=== PATIENT | female | born 1995 | race Caucasian/White ===

== ENCOUNTER 2018-10-10 08:06 | Emergency (ER) | payer OTHER ==
[2018-10-10] MEDS ORDERED: RINGERS SOLUTION,LACTATED 1,000 ML IV ONE (08:24)
--- NOTE | 2018-10-10 08:28 | ER Document Report ---
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 Patient states that she was standing at the computer reviewing the patient's chart when she became flushed, lightheaded and the next thing she knew had a change in vision and was on the floor. Patient denies loss of consciousness. She states that she could hear everything that was going on around her. Denies prior similar symptoms, preceding chest pain, nausea, shortness of breath. Patient's last menstrual period was last week. I asked if she was nervous about starting her first day or had she not eaten breakfast this morning and she states that she did not feel nervous and that she had eaten prior to arrival. She denies any recent illness, current medication use, tobacco use, alcohol use. Upon my exam patient has no physical complaints. Patient denies any cardiac history, history of arrhythmias, history of early cardiac in family. - HPI Onset: Just prior to arrival Onset/Duration: Sudden Quality of pain: No pain Associated symptoms: denies: Body/muscle aches, Chest pain, Nonproductive cough, Productive cough, Fever, Headache, Leg swelling, Nausea, Vomiting, Shortness of breath, Slow to respond, Weakness Exacerbated by: Denies Relieved by: Denies Similar symptoms previously: No Recently seen / treated by doctor: No - Related Data Allergies/Adverse Reactions: No Known Allergies Allergy (Verified 10/10/18 08:32) Past Medical History - General Information source: Patient, [facility] Records - Social History Smoking Status: Never Smoker Frequency of alcohol use: None Drug Abuse: None Lives with: Family Family History: Reviewed & Not Pertinent - Medical History Medical History: Other - Anemia Review of Systems - Review of Systems Notes: REVIEW OF SYSTEMS: CONSTITUTIONAL : Denies fever, chills, or sweats. Denies recent illness. De nies weight loss, recent hospitalizations. EENT: Denies visual changes, eye pain. Denies sore throat, oral lesions, difficulty swallowing. CARDIOVASCULAR: Denies chest pain. Denies palpitations. Denies lower extremity edema. RESPIRATORY: Denies cough. Denies shortness of breath, wheezing. GASTROINTESTINAL: Denies abdominal pain or distention. Denies nausea, vomiting, or diarrhea. Denies blood in vomitus, stools, or per rectum. Denies black, tarry stools. Denies constipation. GENITOURINARY: Denies difficulty urinating, painful urination, frequency, blood in urine, or vaginal discharge. MUSCULOSKELETAL: Denies back or neck pain or stiffness. Denies joint pain or swelling. SKIN: Denies rash, lesions or sores. HEMATOLOGIC : Denies easy bruising or bleeding. LYMPHATIC: Denies swollen glands. NEUROLOGICAL: Denies confusion or altered mental status. Denies loss of consci ousness. Denies headache. Denies weakness or paralysis. Denies problems difficulty with ambulation, slurred speech. Denies sensory loss, numbness, or tingling. Denies seizures. PSYCHIATRIC: Denies anxiety or stress. Denies depression, suicidal ideation, or homicidal ideation. Denies visual or auditory hallucinations. Physical Exam - Vital signs Vitals: Temp Pulse Resp BP Pulse Ox 98.5 F 95 18 117/88 H 100 10/10/18 08:19 10/10/18 08:19 10/10/18 08:19 10/10/18 08:19 10/10/18 08:19 - Notes Notes: PHYSICAL EXAMINATION: GENERAL: Well-appearing, well-nourished and in no acute distress. HEAD: Atraumatic, normocephalic. EYES: Pupils equal round and reactive to light, extraocular movements intact, conjunctiva are normal. ENT: Nares patent, oropharynx clear without exudates. Moist mucous membranes. NECK: Normal range of motion, supple without lymphadenopathy LUNGS: Breath sounds clear to auscultation bilaterally and equal. No wheezes rales or rhonchi. HEART: Regular rate and rhythm without murmurs ABDOMEN: Soft, nontender, nondistended abdomen. No guarding, no rebound. No masses appreciated. Female : deferred Musculoskeletal: Normal range of motion, no pitting or edema. No cyanosis. NEUROLOGICAL: Cranial nerves grossly intact. Normal speech, normal gait. Normal sensory, motor exams PSYCH: Normal mood, normal affect. SKIN: Warm, Dry, normal turgor, no rashes or lesions noted. Course - Re-evaluation Re-evalutation: Laboratory 01/10/10/18 10/10/18 08:24 08:24 08:24 WBC 4.3 RBC 4.52 Hgb 13.7 Hct 40.1 MCV 89 MCH 30.2 MCHC 34.1 RDW 13.6 Plt Count 206 Seg Neutrophils % 71.8 Lymphocytes % 21.2 Monocytes % 5.0 Eosinophils % 1.1 Basophils % 0.9 Absolute Neutrophils 3.1 Absolute Lymphocytes 0.9 Absolute Monocytes 0.2 Absolute Eosinophils 0.0 Absolute Basophils 0.0 D-Dimer 0.29 Sodium 141.7 Potassium 4.0 Chloride 106 Carbon Dioxide 26 Anion Gap 10 BUN 12 Creatinine 0.67 Est GFR ( Amer) > 60 Est GFR (Non-Af Amer) > 60 Glucose 100 Calcium 8.9 Urine Color Urine Appearance Urine pH Ur Specific Mun[place] Urine Protein Urine Glucose (UA) Urine Ketones Urine Blood Urine Nitrite Urine Bilirubin Urine Urobilinogen Ur Leukocyte Esterase Urine WBC (Auto) Urine RBC (Auto) U Hyaline Cast (Auto) Squamous Epi Cells Auto Urine Mucus (Auto) Urine Ascorbic Acid Urine HCG, Qual 10/10/18 08:37 WBC RBC Hgb Hct MCV MCH MCHC RDW Plt Count Seg Neutrophils % Lymphocytes % Monocytes % Eosinophils % Basophils % Absolute Neutrophils Absolute Lymphocytes Absolute Monocytes Absolute Eosinophils Absolute Basophils D-Dimer Sodium Potassium Chloride Carbon Dioxide Anion Gap BUN Creatinine Est GFR ( Amer) Est GFR (Non-Af Amer) Glucose Calcium Urine Color YELLOW Urine Appearance SLIGHTLY-CLOUDY Urine pH 6.0 Ur Specific [place] 1.023 Urine Protein 100 H Urine Glucose (UA) NEGATIVE Urine Ketones NEGATIVE Urine Blood NEGATIVE Urine Nitrite NEGATIVE Urine Bilirubin NEGATIVE Urine Urobilinogen NEGATIVE Ur Leukocyte Esterase NEGATIVE Urine WBC (Auto) 15 Urine RBC (Auto) 6 U Hyaline Cast (Auto) 3 Squamous Epi Cells Auto 10 Urine Mucus (Auto) OCC Urine Ascorbic Acid NEGATIVE Urine HCG, Qual NEGATIVE Temp Pulse Resp BP Pulse Ox 98.5 F 95 18 117/88 H 100 10/10/18 08:19 10/10/18 08:19 10/10/18 08:19 10/10/18 08:19 10/10/18 08:19 23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 Patient states that she was standing at the computer reviewing the patient's chart when she became flushed, lightheaded and the next thing she knew had a change in vision and was on the floor. Patient denies loss of consciousness. She states that she could hear everything that was going on around her. Denies prior similar symptoms, preceding chest pain, nausea, shortness of breath. Patient's last menstrual period was last week. I asked if she was nervous about starting her first day or had she not eaten breakfast this morning and she states that she did not feel nervous and that she had eaten prior to arrival. She denies any recent illness, current medication use, tobacco use, alcohol use. Upon my exam patient has no physical complaints. Vital signs reviewed and within normal limits upon arrival. Previous medical records and nursing notes reviewed. 10/10/18 10:10 Patient reevaluated and she remains alert, awake and asymptomatic. She is tolerating fluids. CBC without leukocytosis or anemia. BMP without electrolyte abnormality. Urinalysis negative for and infection. D-dimer within normal limits. EKG showed the patient to be in normal sinus rhythm. 10/10/18 14:23 10/10/18 15:08 Patient was evaluated and treated as appropriate for the patient's presenting symptoms and complaint, with consideration of any critical or life threatening conditions that may be associated with their obtained history and exam as noted above. All results were discussed with patient. Patient provided the opportunity to ask questions, and express concerns. Patient was educated on treatments based on their presumed diagnosis as noted above. At this time we will discharge the patient with return precautions and follow-up recommendations. Verbal discharge instructions given a the bedside. Medication warnings reviewed. Patient is in ag reement with this plan and has verbalized understanding of return precautions. After careful consideration I feel that that patient can be safely discharged from the emergency department, they were advised to followup with a primary care physician in 2-3 days. Dictation on this chart was performed using voice recognition software and may result in unintended grammatical, spelling, syntax or errors. - Vital Signs Vital signs: Temp Pulse Resp BP Pulse Ox 98.8 F 82 16 105/66 99 10/10/18 11:25 10/10/18 11:25 10/10/18 11:25 10/10/18 11:25 10/10/18 11:25 - Laboratory Result Diagrams: 10/10/18 08:24 10/10/18 08:24 Laboratory results interpreted by me: 10/10/18 08:37 Urine Protein 100 H - EKG Interpretation by Me EKG shows normal: Sinus rhythm Rate: Normal Rhythm: NSR When compared to previous EKG there are: Previous EKG unavailable Discharge - Discharge Clinical Impression: Near syncope, Postural dizziness with near syncope Condition: Good Disposition: HOME, SELF-CARE Instructions: Near Syncopal Episode ([facility]) Additional Instructions: Please drink plenty of fluids, eat regularly. Follow up with your [id number] hours for further care or return to the ED IMMEDIATELY if symptoms worsen or you have any concerns. If you cannot afford to follow up with your primary care physician a list of low cost clinics have been provided at the end of your discharge papers as well. Most prescribed medications have multiple side effects. The safest thing to do is when filling your prescription speak to your pharmacist regarding possible interactions with your normal home medications and over the counter medications such as Ibuprofen, Tylenol, Benadryl. If you experience any symptoms that cause you discomfort or concern you should discontinue the medication immediately and return to the emergency room or call your primary care physician. Referrals: ADRIENNE CORADO III, MD [Primary Care Provider] - Follow up as needed
[2018-10-10 08:39] LABS: ABSOLUTE LYMPHOCYTES (AUTO) 0.9 10^3/uL (0.5-4.7); ABSOLUTE MONOCYTES (AUTO) 0.2 10^3/uL (0.1-1.4); ABSOLUTE NEUT (AUTO) 3.1 10^3/uL (1.7-8.2); BASOPHILS % (AUTO) 0.9 % (0-2); EOSINOPHILS % (AUTO) 1.1 % (0-6); HEMATOCRIT 40.1 % (36.0-47.0); HEMOGLOBIN 13.7 g/dL (12.0-15.5); LYMPHOCYTES % (AUTO) 21.2 % (13-45); MEAN CORPUSCULAR HEMOGLOBIN 30.2 pg (27.0-33.4); MEAN CORPUSCULAR HGB CONC 34.1 g/dL (32.0-36.0); MEAN CORPUSCULAR VOLUME 89 fl (80-97); PLATELET COUNT 206 10^3/uL (150-450); RED BLOOD COUNT 4.52 10^6/uL (3.72-5.28); RED CELL DISTRIBUTION WIDTH 13.6 % (11.5-14.0); SEGMENTED NEUTROPHILS % (AUTO) 71.8 % (42-78); TOTAL CELLS COUNTED % (AUTO) 100 %; WHITE BLOOD COUNT 4.3 10^3/uL (4.0-10.5)
[2018-10-10 08:58] LABS: ANION GAP 10 (5-19); BLOOD UREA NITROGEN 12 mg/dL (7-20); CALCIUM 8.9 mg/dL (8.4-10.2); CARBON DIOXIDE 26 mmol/L (22-30); CHLORIDE 106 mmol/L (98-107); GLUCOSE 100 mg/dL (75-110); SODIUM 141.7 mmol/L (137-145)
[2018-10-10 09:29] LABS: APPEARANCE,URINE SLIGHTLY-CLOUDY; BILIRUBIN,URINE NEGATIVE (NEGATIVE); COLOR,URINE YELLOW; GLUCOSE, URINE NEGATIVE (NEGATIVE); KETONES,URINE NEGATIVE (NEGATIVE); LEUKOCYTE ESTERASE,URINE NEGATIVE (NEGATIVE); NITRITE,URINE NEGATIVE (NEGATIVE); PROTEIN,URINE 100 mg/dL (NEGATIVE); URINE SPECIFIC GRAVITY 1.023; UROBILINOGEN,URINE NEGATIVE mg/dL (<2.0)
[2018-10-10 11:25] VITALS: BP 105/66
--- NOTE | 2018-10-10 19:31 | EKG REPORT ---
SEVERITY:- BORDERLINE ECG - SINUS RHYTHM PROBABLE LEFT ATRIAL ABNORMALITY BORDERLINE RIGHT AXIS DEVIATION BORDERLINE T ABNORMALITIES, ANT-LAT LEADS : Confirmed by: Juanpablo Barrera 10-Oct-2018 19:29:56
== END 2018-10-10 11:33 | disposition home or self-care (01) ==
LOC: ER 08:06
DX: R55 Syncope and collapse (principal); Z86.2 Personal history of diseases of the blood and blood-forming organs and certain disorders involving the immune mechanism
CPT/HCPCS: 93005; 99284; 96360; 36415; 85025; 81025; 80048; 81001; 85379; 93010; J7120